=== PATIENT | male | born 1990 | race Caucasian/White ===

== ENCOUNTER 2018-01-29 09:48 | Emergency (ER) | payer OTHER ==
[2018-01-29 09:53] VITALS: BMI 28.3
[2018-01-29] MEDS ORDERED: MECLIZINE HCL 25 MG TABLET (FP) PO ONE (10:40)
[2018-01-29] MEDS ORDERED: SODIUM CHLORIDE 0.9% 1000 ML INFUS.BAG IV ONE (10:40)
[2018-01-29] MEDS ORDERED: MECLIZINE HCL 25 MG TABLET (FP) ONE (10:41)
--- NOTE | 2018-01-29 10:47 | PDOC ---
History of Present Illness - General Chief Complaint: Nausea Stated Complaint: DIZZINESS, NAUSEA - History of Present Illness Initial Comments: patient is a 27 yo male, with a significant past medical history of ?vertigo, who presents to the emergency department complaining of chronic, intermittent episodes of brief vertigo. Pt states this morning upon waking he noted exacerbation of his chronic vertigo, endorsing BL posterior VILLALPANDO, vision changes ( room spinning) and mild nausea with no vomiting that last 5-10 seconds at a time , worsened by head turning, quick movements or walking. Pt notes these symptoms have persistent for the last 6 months and he has been seen at [facility] for similar episodes, stating he was diagnosed with "vertigo". Pt states today his episodes are worse and more frequent. Pt also noted 2 months of decreased hearing in his L ear. Denies any recent sick contact, recent travel or dietary changes, however does endorse a diet high in salty foods. The patient denies chest pain, shortness of breath, vision loss, gait instability, FNDs. Denies fever, chills, vomiting, diarrhea and constipation. Denies dysuria, frequency, urgency and hematuria. Allergies: None Past surgical history: None Social History: Denies smoking, alcohol or drug use PMD: Does not know name 01/29/18 10:57 Past History - Past Medical History Allergies/Adverse Reactions: Allergies Allergy/AdvReac Type Severity Reaction Status Date / Time No Known Allergies Allergy Verified 01/29/18 09:52 Home Medications: Ambulatory Orders Meclizine HCl [Motion Sickness Relief] 25 mg PO PRN #14 tablet 01/29/18 COPD: No - Suicide/Smoking/Psychosocial Hx Smoking History: Never smoked Review of Systems - Review of Systems Able to Perform ROS?: Yes Comments:: GENERAL/CONSTITUTIONAL: No fever or chills. No weakness. HEAD, EYES, EARS, NOSE AND THROAT: +vision changes (room is spinning); No ear pain or discharge. No sore throat. CARDIOVASCULAR: No chest pain or shortness of breath RESPIRATORY: No cough, wheezing, or hemoptysis. GASTROINTESTINAL: +nausea; no vomiting, diarrhea or constipation. GENITOURINARY: No dysuria, frequency, or change in urination. MUSCULOSKELETAL: No joint or muscle swelling or pain. No neck or back pain. SKIN: No rash NEUROLOGIC: +posterior VILLALPANDO, vertigo; no loss of consciousness, or change in strength/sensation. ENDOCRINE: No increased thirst. No abnormal weight change HEMATOLOGIC/LYMPHATIC: No anemia, easy bleeding, or history of blood clots. ALLERGIC/IMMUNOLOGIC: No hives or skin allergy. 01/29/18 10:57 *Physical Exam - Vital Signs Last Vital Signs Temp Pulse Resp BP Pulse Ox 98.2 F 55 L 18 115/69 100 01/29/18 09:49 01/29/18 09:49 01/29/18 09:49 01/29/18 09:49 01/29/18 09:49 - Physical Exam Comments: GENERAL: Young man, Awake, alert, and fully oriented, in no acute distress HEAD: No signs of trauma, normocephalic, atraumatic EYES: PERRLA, EOMI, sclera anicteric, conjunctiva clear ENT: Auricles normal inspection, hearing grossly normal, nares patent, oropharynx clear without exudates. Moist mucosa NECK: Normal ROM, supple, no lymphadenopathy, JVD, or masses LUNGS: No distress, speaks full sentences, clear to auscultation bilaterally HEART: Regular rate and rhythm, normal S1 and S2, no murmurs, rubs or gallops, peripheral pulses normal and equal bilaterally. ABDOMEN: Soft, nontender, normoactive bowel sounds. No guarding, no rebound. No masses EXTREMITIES : Normal inspection, Normal range of motion, no edema. No clubbing or cyanosis. NEUROLOGICAL: + post-rotatory nystagmus on R side with willy-halpike. No cerebellar defects noted. Cranial nerves II through XII grossly intact. Normal speech, normal gait, no focal sensorimotor deficits SKIN: Warm, Dry, normal turgor, no rashes or lesions noted 01/29/18 10:57 ED Treatment Course - LABORATORY CBC & Chemistry Diagram: 01/29/18 10:47 01/29/18 10:47 Medical Decision Making - Medical Decision Making patient is a 27 yo male, with a significant past medical history of ?vertigo, who presents to the emergency department complaining of chronic, intermittent episodes of brief vertigo. DDX includes BPPV, dehydration, meniere's disease, CVA/TIA, peripheral neuropathy. Plan: - CBC, CMP - Meclizine for vertigo, nausea - 1L NS 01/29/18 11:10 Pt L ear canal irrigated with clearance of cerum noted. Pt symptoms improved with meclizine, VSS. Will discharge home with meclizine Rx and f/u with neurology and ENT. 01/29/18 13:15 *DC/Admit/Observation/Transfer Diagnosis at time of Disposition: BPPV (benign paroxysmal positional vertigo) Qualifiers: Laterality: right Qualified Code(s): H81.11 - Benign paroxysmal vertigo, right ear - Discharge Dispostion Disposition: HOME Condition at time of disposition: Good Decision to Admit order: No - Prescriptions Prescriptions: Meclizine HCl [Motion Sickness Relief] 25 mg PO PRN #14 tablet - Referrals Referrals: Lane Campbell MD [Staff Physician] - Shreyas Olivarez MD [Staff Physician] - - Patient Instructions Printed Discharge Instructions: Benign Paroxysmal Positional Vertigo, DI for Benign Paroxysmal Positional Vertigo Additional Instructions: During your visit to the [facility] ED, you were vertigo and nausea. You received hydration and standard lab tests, which were relatively unremarkable. You are being discharged home with outpatient follow-up with your primary care provider and are being provided a referral to see our neurologist, Dr. Campbell and our ENT, Dr. Olivarez. Please take Meclizine 25mg, one tab as needed until your symptoms resolve. If you experience any of the following symptoms, please return to the ED: - Persistent fevers/chills >3 days - Changes in vision, numbness/weakness in any extremities, or persistent dizziness/loss of consciousness that does not resolve - Any new or concerning symptoms - Post Discharge Activity
[2018-01-29 10:57] LABS: EOS % 5.3 % (0-4.5); HEMATOCRIT 42.7 % (35.4-49); HEMOGLOBIN 14.6 GM/dL (11.7-16.9); LYMPH % 29.3 % (8-40); MCH 29.1 pg (25.7-33.7); MCHC 34.2 g/dl (32.0-35.9); MEAN CELL VOLUME 85.1 fl (80-96); MEAN PLT VOLUME 9.2 fl (7.5-11.1); NEUT % 57.4 % (42.8-82.8); PLATELET COUNT 223 K/MM3 (134-434); RBC 5.02 M/mm3 (4.00-5.60); RDW 13.2 % (11.9-15.9); WHITE BLOOD COUNT 4.2 K/mm3 (4.0-10.0)
[2018-01-29 11:19] LABS: ALBUMIN 4.4 g/dl (3.4-5.0); ANION GAP 8 (8-16); BLOOD UREA NITROGEN 18 mg/dL (7-18); CALCIUM 8.8 mg/dL (8.5-10.1); CHLORIDE 104 mmol/L (98-107); CO2 27 mmol/L (21-32); GLUCOSE,RANDOM 92 mg/dL (74-106); POTASSIUM 4.1 mmol/L (3.5-5.1); SGOT/AST 17 U/L (15-37); SGPT/ALT 31 U/L (12-78); SODIUM 139 mmol/L (136-145)
[2018-01-29 11:25] LABS: ALK PHOS 76 U/L (45-117); BILIRUBIN,TOTAL 0.8 mg/dL (0.2-1.0); TOT PROT 8.1 g/dl (6.4-8.2)
--- NOTE | 2018-01-29 12:40 | PDOC ---
Attending Attestation - Resident Resident Name: Michael Lindsay - ED Attending Attestation I have performed the following: I have examined & evaluated the patient, The case was reviewed & discussed with the resident, I agree w/resident's findings & plan, Exceptions are as noted - Physicial Exam PE: 01/29/18 12:36 awake alert nad. lungs clear bilaterally. heart rrr nomrg. abd soft nt nd. HEENT exam right TM with serous effusion. left TM occluded with was. cerebellar exam finger to nose normal, heel to joshi normal. gait normal. alt hand movement normal. neg romber. pos willy hallpike to right. - Medical Decision Making 01/29/18 12:37 27 yo M with vertigo, normal cerebellar exam. left TM occlusion with wax. plan cerumen disimpaction. meclizine. labs fluids r/o electrolyte abnormality or anemia. reassess. jazz mckeon with nuerology followup. <Miryam Garcia - Last Filed: 01/29/18 12:36> - HPI HPI: 01/29/18 12:41 Patient is a 27 year old male, who presents today with dizziness, nausea, and left earache. Patient states that this has been going on for 6 months and describes his dizziness as intermittent, last 5 sec intervals, worse with movement (especially headmvnt). He is also complaining of b/l posterior headache and persistent hearing loss in his left ear. He also admits some diarrhea yesterday but reports good PO intake. Denies tinnitus. Denies vomiting. <Joann King - Last Filed: 01/29/18 12:41>
[2018-01-29 13:28] VITALS: BP 135/80; PULSE 87; TEMP 98.3
== END 2018-01-29 13:28 | disposition home or self-care (01) ==
LOC: EDBD 09:48 → JER 09:48 → EDSEX 09:48 → JER 13:28
PROC: 3E1B78Z Irrigation of Ear using Irrigating Substance, Via Natural or Artificial Opening (ICD-10-PCS; principal; 2018-01-29)
DX: H81.11 Benign paroxysmal vertigo, right ear (principal); H61.22 Impacted cerumen, left ear
CPT/HCPCS: 36415; 69210; 80053; 85025; 99282-25; J7030

== ENCOUNTER 2022-09-23 22:00 | Emergency (ER) | payer OTHER ==
[2022-09-23 22:21] VITALS: BP 125/80; PULSE 64; RESP 16; TEMP 98.6; BMI 29.8
[2022-09-24 00:01] LABS: PH,URINE 5.5 (5.0-8.0); URINE APPEARANCE CLEAR; URINE BILIRUBIN NEGATIVE (NEGATIVE); URINE COLOR YELLOW; URINE GLUCOSE (UA) NEGATIVE (NEGATIVE); URINE KETONE NEGATIVE (NEGATIVE); URINE LEUK ESTERASE NEGATIVE (NEGATIVE); URINE NITRITE NEGATIVE (NEGATIVE); URINE PROTEIN NEGATIVE (NEGATIVE); URINE UROBILINOGEN 0.2 mg/dL (0.2-1.0)
[2022-09-24] MEDS ORDERED: IBUPROFEN 400 MG TABLET (FP) PO ONE ×2 (00:07→00:20)
[2022-09-24] MEDS ORDERED: LIDOCAINE 5% TOPICAL PATCH TP ONE (00:08)
[2022-09-24] MEDS ORDERED: METHOCARBAMOL 500 MG TABLET PO ONE (00:08)
[2022-09-24] MEDS ORDERED: METHOCARBAMOL 500 MG TABLET ONE (00:21)
[2022-09-24] MEDS ORDERED: LIDOCAINE 5% TOPICAL PATCH ONE (00:21)
[2022-09-24 02:52] LABS: BASO % 0.5 % (0-2.0); EOS % 2.4 % (0-4.5); HEMOGLOBIN 14.8 GM/dL (11.7-16.9); LYMPH % 29.7 % (8-40); MCH 28.6 pg (25.7-33.7); MCHC 33.6 g/dl (32.0-35.9); MEAN PLT VOLUME 8.6 fl (7.5-11.1); NEUT % 59.4 % (42.8-82.8); PLATELET COUNT 258 10^3/uL (134-434); RBC 5.17 M/mm3 (4.00-5.60); RDW 13.6 % (11.9-15.9); WHITE BLOOD COUNT 4.8 K/mm3 (4.0-10.0)
[2022-09-24 02:55] LABS: CALCIUM 8.8 mg/dL (8.5-10.1)
[2022-09-24 02:57] LABS: BLOOD UREA NITROGEN 17.2 mg/dL (7-18)
[2022-09-24 02:59] LABS: ALBUMIN 4.3 g/dl (3.4-5.0); CREATININE 0.9 mg/dL (0.55-1.3)
[2022-09-24 03:01] LABS: BILIRUBIN,TOTAL 0.5 mg/dL (0.2-1); TOT PROT 7.8 g/dl (6.4-8.2)
[2022-09-24] MEDS ORDERED: LIDOCAINE PATCH REMOVAL MC SCH (22:00)
== END 2022-09-24 05:00 | disposition home or self-care (01) ==
LOC: JER 22:00
DX: R10.9 Unspecified abdominal pain (principal)
CPT/HCPCS: 36415; 74177-TC; 80053; 81003; 85025; 87086; 99285-25